=== PATIENT | female | born 1955 | race Caucasian/White ===

== ENCOUNTER → 2018-03-02 | Outpatient (CLI) | payer OTHER ==
--- NOTE | 2018-03-02 14:37 | US ---
EXAM DESCRIPTION: Carotid Duplex: ULTRASOUND. CLINICAL HISTORY: 62 years Female [place] COMPARISON: MRI of the brain on the same visit. TECHNIQUE: Transcutaneous scanning utilizing pena-scale and Doppler modes to evaluate the bilateral carotid systems and vertebral arteries. Percentage of diameter of stenosis or no stenosis recorded will be based upon NASCET criteria. FINDINGS: Peak systolic/end diastolic (CM-Sec) CCA Right 91/33 Left 77/25. ICA Right proximal 92/37, distal 82/31. Left proximal 71/31, Distal 76/30. Vertebral Right 36/13 Left 59/22. ECA (PS Only) Right 58 left 49. ICA/CCA peak systolic ratio: Right 1.0 Left 1.0 ICA/CCA end diastolic ratio: Right n/a Left n/a Vertebral arteries: antegrade flow. Comments: Atherosclerotic calcification of the bilateral bifurcations. Spectral broadening in the bilateral proximal ICAs. IMPRESSION: 1. Doppler evaluation of the bilateral carotid systems and vertebral arteries shows no hemodynamically significant stenoses. 2. No significant amount of plaque seen in the carotid arteries bilaterally. Bilateral vertebral arteries showed antegrade-cephalad flow. Electronically signed by: Valente Delong MD 03/02/2018 2:36 PM [facility]
--- NOTE | 2018-03-02 14:51 | MRI ---
EXAM DESCRIPTION: Brain w/wo Contrast: Magnetic Resonance Imaging. CLINICAL HISTORY: 62 years Female [place] COMPARISON: Duplex ultrasound of the bilateral carotid vertebral systems today. TECHNIQUE: Multiplanar, high-field MRI, multiple conventional sequences, without and with gadolinium IV contrast. No adverse reactions. Multiple axial diffusion sequences. FINDINGS: Small multiple foci of hyperintense FLAIR and T2-weighted signal in the left frontal lobe subcortical white matter, right frontal lobe periventricular white matter, posterior right frontal lobe subcortical white matter, and periventricular posterior right frontal lobe just above the right lateral ventricle. Not associated with abnormal contrast enhancement, hemorrhage, mass effect, or diffusion restriction. Normal signal in the bilateral basal ganglia. No hemorrhage, no cerebral edema, no diffusion restriction. Normal contrast enhancement. Normal signal in the brainstem and cerebellar hemispheres. No hemorrhage, no cerebral edema, no mass-effect. Normal contrast enhancement. Concordance of the diffusion and non-diffusion sequences with no evidence of acute or subacute infarction. Cortical sulci, ventricles, and other CSF spaces, and the subdural spaces are normally configured for patients age. No effacement or displacement. No midline shift. No extra-axial hemorrhage. Normal contrast enhancement. Normal flow signal void in the major vessels of the [place], and the venous sinuses. IACs are symmetric bilaterally. Included signal in some of the posterior inferior right mastoid air cells. No mass effect in the bilateral Cerebellopontine angles. Normal contrast enhancement. Pituitary gland occupies only the base of the sella; contains mostly CSF. Normal contrast enhancement. Base of the cerebellar tonsils is 5 mm below the level of the foramen magnum. Minimal mucoperiosteal thickening in some of the paranasal sinuses. The bony calvarium is intact. IMPRESSION: 1. Small subcortical white matter lesions and periventricular white matter lesions in the brain without contrast enhancement, mass effect, cerebral edema, hemorrhage, or diffusion restriction. Consistent with small vessel disease. Unlikely to represent migraine headaches or demyelinating lesions. 2. Normal noncontrast MRI diffusion study with no evidence of acute or subacute infarction or diffusion restriction. 3. Inflammatory changes in the right mastoid air cells. Also paranasal sinuses. 4. Small pituitary gland with most of the sella occupied by CSF. 5. Cerebellar tonsillar ectopia unlikely to represent Chiari I malformation. Large cisterna magna. Posterior fossa otherwise unremarkable Electronically signed by: Valente Delong MD 03/02/2018 2:50 PM [facility]
== END ==
LOC: MRI 08:57
PROVIDERS: ATTEND Family Medicine
DX: I65.23 Occlusion and stenosis of bilateral carotid arteries (principal); G44.209 Tension-type headache, unspecified, not intractable